=== PATIENT | male | born 1985 | race Caucasian/White ===

== ENCOUNTER 2017-06-06 03:49 | Emergency (ER) | payer OTHER ==
[~2017-06-06] VITALS: Ht 172.7 cm; Wt 77.5 kg
[2017-06-06 03:50] VITALS: BP 128/80
[2017-06-06] MEDS ORDERED: KETOROLAC 30 MG/1 ML ONE (04:09)
[2017-06-06] MEDS ORDERED: ONDANSETRON 2MG/ML, 2ML ONE (04:12)
[2017-06-06] MEDS ORDERED: SODIUM CHLORIDE 0.9% 1,000ML IVBOLUS ONE (04:30)
[2017-06-06] MEDS ORDERED: KETOROLAC 30 MG/1 ML IVPush ONE (04:30)
[2017-06-06] MEDS ORDERED: ONDANSETRON 2MG/ML, 2ML IVPush ONE (04:30)
[2017-06-06] MEDS ORDERED: SODIUM CHLORIDE FLUSH 10ML SYR IVF ONE (04:30)
[2017-06-06 04:37] LABS: HEMATOCRIT 47.1 % (39.2-51.8); HEMOGLOBIN 15.9 g/dL (13.7-18.0); WHITE BLOOD COUNT 8.2 x10^3/uL (3.4-10)
[2017-06-06 04:51] LABS: BLOOD UREA NITROGEN 17 mg/dL (7-18)
== END 2017-06-06 05:35 | disposition home or self-care (01) ==
LOC: ED 05:18
DX: K57.30 Diverticulosis of large intestine without perforation or abscess without bleeding (principal); N13.2 Hydronephrosis with renal and ureteral calculous obstruction; N20.1 Calculus of ureter
CPT/HCPCS: 36415; 74176; 80048; 81001; 82040; 85025; 96361; 96374; 96375; 99285; J1885; J2405; J7030